=== PATIENT | female | born 1965 | race Caucasian/White ===

== ENCOUNTER 2021-04-29 10:35 | Emergency (ER) | payer OTHER ==
[~2021-04-29] VITALS: Ht 162.6 cm; Wt 83.9 kg
[~2021-04-29 10:35] MED LIST: CEPH250T; DOCU100C24; NORPTMEDS CO; OXYB5TAB24; PRO125RS
[2021-04-29 10:45] VITALS: BP 121/59
[2021-04-29] MEDS ORDERED: KETOROLAC TROMETH 60MG/2ML VIAL IM ONE (12:15)
== END 2021-04-29 14:19 | disposition home or self-care (01) ==
LOC: ER 10:35
DX: S63.92XA Sprain of unspecified part of left wrist and hand, initial encounter (principal); M25.562 Pain in left knee; M54.5 Low back pain; E11.9 Type 2 diabetes mellitus without complications; Z79.899 Other long term (current) drug therapy; W01.0XXA Fall on same level from slipping, tripping and stumbling without subsequent striking against object, initial encounter; Y93.89 Activity, other specified; Y92.89 Other specified places as the place of occurrence of the external cause; Y99.0 Civilian activity done for income or pay
CPT/HCPCS: 72100; 73130; 73562; 96372; 99284; J1885

== ENCOUNTER 2021-09-14 11:34 | Inpatient (IN) | payer OTHER ==
[~2021-09-14] VITALS: Ht 162.6 cm; Wt 84.8 kg
[2021-09-14] MEDS ORDERED: methylPREDNISolone SOD SUCC 125 MG/2 ML VL IV ONE (11:45)
[2021-09-14 13:11] LABS: Hematocrit 39.2 % (36.0-46.0); Hemoglobin 13.2 g/dL (12.2-16.2); Mean Corpuscular Hemoglobin 28.1 pg (28.0-32.0); Mean Corpuscular Hgb Conc. 33.8 g/dL (32.0-36.0); Mean Corpuscular Volume 83.1 fL (80.0-100.0); Red Blood Cells 4.72 10^6/uL (4.0-5.20); Red Cell Distribution Width 14.1 % (11.8-14.3)
[2021-09-14 13:18] LABS: Basophils % (manual) 0 (0.0-2.0); Blast Cells 0; Eosinophils % (manual) 0 (0-7); Monocytes % (manual) 0 (0-12); Promyelocytes % 0; Reactive Lymphocytes 0
[2021-09-14 13:51] LABS: Band Neutrophils % (manual) 4; Lymphocytes % (manual) 11 (10.0-50.0); Metamyelocytes % 1; Myelocytes % 1
[2021-09-14] MEDS ORDERED: hydrALAZINE HCL 20 MG/ML VL IV PRN (14:00)
[2021-09-14] MEDS ORDERED: MORPHINE SULFATE INJECTION 2 MG/ML SYRG IV PRN (14:00)
[2021-09-14] MEDS ORDERED: HYDROcodone-ACET 10/325MG TAB PO PRN (14:00)
[2021-09-14] MEDS ORDERED: NITROGLYCERIN 0.4 MG SL TAB SL PRN (14:00)
[2021-09-14 14:31] LABS: Albumin 1.9 g/dL (3.4-5.0); Anion Gap 11 (5-15); Blood Urea Nitrogen 14 mg/dL (7-18); Calcium 8.1 mg/dL (8.5-10.1); Carbon Dioxide 25 mmol/L (21-32); Chloride 101 mmol/L (98-107); Glucose 210 mg/dL (74-106); Magnesium 1.7 mg/dL (1.6-2.6); Potassium 4.5 mmol/L (3.5-5.1); Sodium 137 mmol/L (136-145)
[2021-09-14 14:41] LABS: Alanine Aminotransferase 43 U/L (13-56); Alkaline Phosphatase 148 U/L (45-117); Aspartate Aminotransferase 83 U/L (15-37); BUN/Creatinine Ratio 29.2; Bilirubin, Total 0.6 mg/dL (0.2-1.0); GFR African American 171 mL/min; GFR Non-African American 142 mL/min; Total Protein 6.3 g/dL (6.4-8.2)
[2021-09-14] MEDS: ZINC SULFATE 220mg CAP or TAB PO SCH (14:47)
[2021-09-14] MEDS: ENOXAPARIN SOD 40 MG/0.4 ML SYRINGE SC SCH (14:48)
[2021-09-14] MEDS: ASCORBIC ACID 500 MG TAB PO SCH ×2 (14:48→22:12)
[2021-09-14 14:52] LABS: CRP High Sensitivity > 19.0 mg/dL (< 0.3)
[2021-09-14 15:29] VITALS: BP 135/57
[2021-09-14] MEDS: DOXYCYCLINE 100MG/250ML 250 ML IV SCH (17:05)
[2021-09-14] MEDS ORDERED: cefTRIAXone 1GM/50ML D5W 50 ML IV ONE (18:00)
[2021-09-14 20:44] VITALS: BP 146/79
[2021-09-14] MEDS: ALBUTEROL SULF HFA 90MCG INH 200DOSE IN SCH (21:51)
[2021-09-14 22:00] VITALS: BP 146/79
[2021-09-14] MEDS ORDERED: ALBUTEROL SULF HFA 90MCG INH 200DOSE IN SCH (22:00)
[2021-09-14] MEDS: HYDROcodone-ACET 10/325MG TAB PO PRN (22:11)
[2021-09-14] MEDS ORDERED: METF-370 PO (23:58)
[2021-09-15] VITALS (13 sets, daily range): BP systolic 113–145; BP diastolic 67–90
[2021-09-15] MEDS: DOXYCYCLINE 100MG/250ML 250 ML IV SCH ×2 (03:30→15:54)
[2021-09-15 06:47] LABS: Hematocrit 40.9 % (36.0-46.0); Mean Corpuscular Hgb Conc. 34.2 g/dL (32.0-36.0); Mean Corpuscular Volume 84.8 fL (80.0-100.0); Red Blood Cells 4.82 10^6/uL (4.0-5.20); White Blood Cell 10.8 10^3/uL (4.4-10.8)
[2021-09-15 06:49] LABS: Basophils % (manual) 0 (0.0-2.0); Blast Cells 0; Eosinophils % (manual) 0 (0-7); Metamyelocytes % 0; Myelocytes % 0; Promyelocytes % 0; Reactive Lymphocytes 0
[2021-09-15 06:53] LABS: Calcium 8.2 mg/dL (8.5-10.1); Potassium 4.1 mmol/L (3.5-5.1)
[2021-09-15 06:59] LABS: Albumin 1.7 g/dL (3.4-5.0); Bilirubin, Total 0.4 mg/dL (0.2-1.0)
[2021-09-15] MEDS ORDERED: VANCOMYCIN PER PHARMACY 0 MG IV SCH (07:15)
[2021-09-15 08:18] LABS: Band Neutrophils % (manual) 6; Lymphocytes % (manual) 9 (10.0-50.0); Monocytes % (manual) 4 (0-12)
[2021-09-15] MEDS: cefTRIAXone 1GM/50ML D5W 50 ML IV SCH (09:14)
[2021-09-15] MEDS: Glucerna Carbsteady SHAKE Vanilla 8oz PO SCH ×4 (09:41→17:46)
[2021-09-15] MEDS: ASCORBIC ACID 500 MG TAB PO SCH ×2 (09:42→21:36)
[2021-09-15] MEDS: DexAMETHasone SOD PHOS 10MG/1ML VIAL INJ IV SCH (09:42)
[2021-09-15] MEDS: ZINC SULFATE 220mg CAP or TAB PO SCH (09:42)
[2021-09-15] MEDS: ENOXAPARIN SOD 40 MG/0.4 ML SYRINGE SC SCH (10:00)
[2021-09-15] MEDS: ALBUTEROL SULF HFA 90MCG INH 200DOSE IN SCH ×2 (10:00→19:27)
[2021-09-15] MEDS: VANCOMYCIN 1GM/250ML 250 ML IV SCH ×2 (10:25→21:35)
[2021-09-15 10:29] LABS: INR 1.02 (0.9-1.15)
[2021-09-15 11:45] LABS: Urine Bacteria NONE SEEN /hpf (None Seen); Urine Blood Negative /uL (Negative); Urine Specific Gravity 1.036 (1.001-1.035); Urine WBC 1 /hpf (0 - 5)
[2021-09-15] MEDS ORDERED: LIDOCAINE 2%HCL (LOCAL ANESTH.) INJ 20ML MDV ONE (12:29)
[2021-09-15] MEDS: HYDROcodone-ACET 5/325MG TAB PO PRN (15:07)
[2021-09-15] MEDS: HYDROcodone-ACET 10/325MG TAB PO PRN (21:57)
[2021-09-16] MEDS: HYDROcodone-ACET 10/325MG TAB PO PRN ×3 (03:42→22:34)
[2021-09-16] MEDS: DOXYCYCLINE 100MG/250ML 250 ML IV SCH ×2 (03:42→18:14)
[2021-09-16 05:00] VITALS: BP 129/88
[2021-09-16] MEDS: ALBUTEROL SULF HFA 90MCG INH 200DOSE IN SCH ×2 (05:42→19:18)
[2021-09-16 06:17] LABS: Hematocrit 38.3 % (36.0-46.0); Hemoglobin 12.7 g/dL (12.2-16.2); Mean Corpuscular Hgb Conc. 33.2 g/dL (32.0-36.0); Mean Corpuscular Volume 84.3 fL (80.0-100.0); Red Blood Cells 4.55 10^6/uL (4.0-5.20); Red Cell Distribution Width 13.5 % (11.8-14.3); White Blood Cell 14.3 10^3/uL (4.4-10.8)
[2021-09-16] MEDS: VANCOMYCIN 1GM/250ML 250 ML IV SCH ×2 (06:23→16:54)
[2021-09-16 06:39] LABS: Basophils % (manual) 0 (0.0-2.0); Blast Cells 0; Eosinophils % (manual) 0 (0-7); Myelocytes % 0; Promyelocytes % 0; Reactive Lymphocytes 0
[2021-09-16 06:43] LABS: Albumin 1.7 g/dL (3.4-5.0); Calcium 8.4 mg/dL (8.5-10.1); Potassium 4.5 mmol/L (3.5-5.1)
[2021-09-16 06:48] LABS: Bilirubin, Total 0.4 mg/dL (0.2-1.0); Total Protein 5.6 g/dL (6.4-8.2)
[2021-09-16 08:00] VITALS: BP 98/57
[2021-09-16] MEDS: cefTRIAXone 1GM/50ML D5W 50 ML IV SCH (09:07)
[2021-09-16] MEDS: Glucerna Carbsteady SHAKE Vanilla 8oz PO SCH ×3 (09:08→18:15)
[2021-09-16] MEDS: DexAMETHasone SOD PHOS 10MG/1ML VIAL INJ IV SCH (09:50)
[2021-09-16] MEDS: ZINC SULFATE 220mg CAP or TAB PO SCH (09:58)
[2021-09-16] MEDS: ASCORBIC ACID 500 MG TAB PO SCH ×2 (09:58→22:34)
[2021-09-16] MEDS: ENOXAPARIN SOD 40 MG/0.4 ML SYRINGE SC SCH (09:59)
[2021-09-16 12:00] VITALS: BP 124/62
[2021-09-16 12:55] LABS: Band Neutrophils % (manual) 8; Lymphocytes % (manual) 10 (10.0-50.0); Metamyelocytes % 1; Monocytes % (manual) 5 (0-12)
[2021-09-16 16:00] VITALS: BP 137/80
[2021-09-16] MEDS: HYDROcodone-ACET 5/325MG TAB PO PRN (18:29)
[2021-09-16 22:00] VITALS: BP 136/81
[2021-09-17] MEDS: VANCOMYCIN 1GM/250ML 250 ML IV SCH ×3 (01:07→17:43)
[2021-09-17] MEDS: DOXYCYCLINE 100MG/250ML 250 ML IV SCH ×2 (04:31→15:50)
[2021-09-17] MEDS: HYDROcodone-ACET 10/325MG TAB PO PRN ×5 (04:32→21:50)
[2021-09-17 05:00] VITALS: BP 146/100
[2021-09-17 06:58] LABS: BUN/Creatinine Ratio 38.6; Calcium 8.8 mg/dL (8.5-10.1); Potassium 4.6 mmol/L (3.5-5.1)
[2021-09-17 07:01] LABS: Bilirubin, Total 0.4 mg/dL (0.2-1.0); Total Protein 6.1 g/dL (6.4-8.2)
[2021-09-17 07:07] LABS: Hematocrit 40.8 % (36.0-46.0); Hemoglobin 13.9 g/dL (12.2-16.2); Mean Corpuscular Hemoglobin 28.7 pg (28.0-32.0); Mean Corpuscular Hgb Conc. 34.1 g/dL (32.0-36.0); Red Blood Cells 4.85 10^6/uL (4.0-5.20); Red Cell Distribution Width 13.5 % (11.8-14.3); White Blood Cell 9.1 10^3/uL (4.4-10.8)
[2021-09-17 07:29] LABS: Basophils % (manual) 0 (0.0-2.0); Blast Cells 0; Eosinophils % (manual) 0 (0-7); Metamyelocytes % 0; Myelocytes % 0; Promyelocytes % 0; Reactive Lymphocytes 0
[2021-09-17] MEDS: ALBUTEROL SULF HFA 90MCG INH 200DOSE IN SCH ×2 (07:35→20:35)
[2021-09-17 08:00] VITALS: BP_SYST 123; BP_SYST 125; BP_DIAS 61
[2021-09-17] MEDS: cefTRIAXone 1GM/50ML D5W 50 ML IV SCH (09:06)
[2021-09-17] MEDS: Glucerna Carbsteady SHAKE Vanilla 8oz PO SCH ×3 (09:08→17:43)
[2021-09-17] MEDS: ENOXAPARIN SOD 40 MG/0.4 ML SYRINGE SC SCH (09:08)
[2021-09-17] MEDS: ZINC SULFATE 220mg CAP or TAB PO SCH (09:09)
[2021-09-17] MEDS: ASCORBIC ACID 500 MG TAB PO SCH ×2 (09:09→21:50)
[2021-09-17] MEDS: DexAMETHasone SOD PHOS 10MG/1ML VIAL INJ IV SCH (09:09)
[2021-09-17 09:49] LABS: Band Neutrophils % (manual) 2; Lymphocytes % (manual) 19 (10.0-50.0); Monocytes % (manual) 7 (0-12)
[2021-09-17] MEDS ORDERED: PROMETHAZINE W/CODEINE 5 ML ORAL SYRUP PO PRN (11:15)
[2021-09-17 12:00] VITALS: BP 125/61
[2021-09-17] MEDS ORDERED: DEXTROSE (50%) 50ML SYRG IV PRN (13:00)
[2021-09-17] MEDS: LORazepam 0.5 MG TAB PO PRN (13:08)
[2021-09-17] MEDS: ACCU-CHEK COMFORT CURVE STRIP VI SCH ×2 (17:42→21:50)
[2021-09-17] MEDS: InsuLIN REG 1unit/0.01ml Soln (100units/ml) SC SCH ×2 (17:45→21:46)
[2021-09-18] MEDS: HYDROcodone-ACET 10/325MG TAB PO PRN ×4 (02:39→21:35)
[2021-09-18] MEDS: VANCOMYCIN 1GM/250ML 250 ML IV SCH ×3 (03:01→21:23)
[2021-09-18] MEDS: LORazepam 0.5 MG TAB PO PRN ×2 (04:41→15:27)
[2021-09-18 05:00] VITALS: BP 117/66
[2021-09-18] MEDS: DOXYCYCLINE 100MG/250ML 250 ML IV SCH ×2 (05:34→15:35)
[2021-09-18] MEDS: InsuLIN REG 1unit/0.01ml Soln (100units/ml) SC SCH ×4 (06:22→21:30)
[2021-09-18] MEDS: ACCU-CHEK COMFORT CURVE STRIP VI SCH ×4 (06:23→21:23)
[2021-09-18 06:32] LABS: Basophils # (auto) 0 10 ^3/uL (0-0.2); Basophils % (auto) 0.4 % (0.0-2.0); Eosinophils # (auto) 0 10 ^3/uL (0-0.8); Eosinophils % (auto) 0.2 % (0.0-7.0); Hematocrit 39.1 % (36.0-46.0); Lymphocytes # (auto) 1.5 10 ^3/uL (0.4-5.4); Lymphocytes % (auto) 19.1 % (10.0-50.0); Mean Corpuscular Hemoglobin 28.2 pg (28.0-32.0); Mean Corpuscular Hgb Conc. 33.2 g/dL (32.0-36.0); Mean Corpuscular Volume 84.8 fL (80.0-100.0); Monocytes # (auto) 0.6 10 ^3/uL (0-1.3); Monocytes % (auto) 7.3 % (0.0-12.0); Neutrophils # (auto) 5.6 10 ^3/uL (1.6-8.6); Nucleated Red Blood Cells % 0.1 %; Red Blood Cells 4.61 10^6/uL (4.0-5.20); Red Cell Distribution Width 13.6 % (11.8-14.3); White Blood Cell 7.7 10^3/uL (4.4-10.8)
[2021-09-18 06:39] LABS: Albumin 1.9 g/dL (3.4-5.0); Calcium 8.4 mg/dL (8.5-10.1); Potassium 4.4 mmol/L (3.5-5.1)
[2021-09-18 06:44] LABS: BUN/Creatinine Ratio 30.1; Bilirubin, Total 0.3 mg/dL (0.2-1.0); Total Protein 6.1 g/dL (6.4-8.2)
[2021-09-18] MEDS: ALBUTEROL SULF HFA 90MCG INH 200DOSE IN SCH ×2 (08:16→21:40)
[2021-09-18 09:00] VITALS: BP 117/78
[2021-09-18] MEDS: ZINC SULFATE 220mg CAP or TAB PO SCH (10:10)
[2021-09-18] MEDS: ENOXAPARIN SOD 40 MG/0.4 ML SYRINGE SC SCH (10:10)
[2021-09-18] MEDS: ASCORBIC ACID 500 MG TAB PO SCH ×2 (10:10→21:23)
[2021-09-18] MEDS: cefTRIAXone 1GM/50ML D5W 50 ML IV SCH (10:11)
[2021-09-18] MEDS: DexAMETHasone SOD PHOS 10MG/1ML VIAL INJ IV SCH (10:11)
[2021-09-18] MEDS: Glucerna Carbsteady SHAKE Vanilla 8oz PO SCH ×3 (10:12→18:13)
[2021-09-18 12:10] VITALS: BP 117/78
[2021-09-18 13:00] VITALS: BP 91/45
[2021-09-18 16:56] VITALS: BP 111/62
[2021-09-18] MEDS: INSULIN LANTUS (GLARGINE) 1 /0.01ml (100units/ml) SC SCH (21:30)
[2021-09-18 22:00] VITALS: BP 103/61
[2021-09-19] MEDS: HYDROcodone-ACET 10/325MG TAB PO PRN ×2 (02:21→21:57)
[2021-09-19] MEDS: DOXYCYCLINE 100MG/250ML 250 ML IV SCH (03:51)
[2021-09-19 05:00] VITALS: BP 106/68
[2021-09-19] MEDS: ALBUTEROL SULF HFA 90MCG INH 200DOSE IN SCH ×2 (05:49→21:40)
[2021-09-19] MEDS: INSULIN LANTUS (GLARGINE) 1 /0.01ml (100units/ml) SC SCH ×2 (06:49→21:56)
[2021-09-19] MEDS: ACCU-CHEK COMFORT CURVE STRIP VI SCH ×4 (06:49→21:55)
[2021-09-19] MEDS: InsuLIN REG 1unit/0.01ml Soln (100units/ml) SC SCH ×4 (06:50→21:56)
[2021-09-19] MEDS: VANCOMYCIN 1GM/250ML 250 ML IV SCH ×2 (06:55→16:14)
[2021-09-19 06:58] LABS: Basophils # (auto) 0 10 ^3/uL (0-0.2); Basophils % (auto) 0.1 % (0.0-2.0); Eosinophils # (auto) 0 10 ^3/uL (0-0.8); Eosinophils % (auto) 0.5 % (0.0-7.0); Hematocrit 39.6 % (36.0-46.0); Hemoglobin 13.2 g/dL (12.2-16.2); Mean Corpuscular Hemoglobin 27.9 pg (28.0-32.0); Mean Corpuscular Hgb Conc. 33.4 g/dL (32.0-36.0); Mean Corpuscular Volume 83.6 fL (80.0-100.0); Monocytes # (auto) 0.6 10 ^3/uL (0-1.3); Monocytes % (auto) 7.1 % (0.0-12.0); Neutrophils # (auto) 5.5 10 ^3/uL (1.6-8.6); Neutrophils % (auto) 67.3 % (37.0-80.0); Nucleated Red Blood Cells % 0.1 %; Red Blood Cells 4.74 10^6/uL (4.0-5.20); Red Cell Distribution Width 13.6 % (11.8-14.3); White Blood Cell 8.1 10^3/uL (4.4-10.8)
[2021-09-19 07:12] LABS: Albumin 1.9 g/dL (3.4-5.0); Calcium 8.4 mg/dL (8.5-10.1); Potassium 4.5 mmol/L (3.5-5.1)
[2021-09-19 07:16] LABS: BUN/Creatinine Ratio 44.3; Bilirubin, Total 0.4 mg/dL (0.2-1.0); Total Protein 5.7 g/dL (6.4-8.2)
[2021-09-19] MEDS: Glucerna Carbsteady SHAKE Vanilla 8oz PO SCH ×3 (08:00→18:00)
[2021-09-19 09:00] VITALS: BP 100/46
[2021-09-19] MEDS ORDERED: ALPRAZolam 0.25 MG TAB PO PRN (09:15)
[2021-09-19] MEDS: DexAMETHasone SOD PHOS 10MG/1ML VIAL INJ IV SCH (09:43)
[2021-09-19] MEDS: ZINC SULFATE 220mg CAP or TAB PO SCH (09:43)
[2021-09-19] MEDS: cefTRIAXone 1GM/50ML D5W 50 ML IV SCH (09:43)
[2021-09-19] MEDS: ASCORBIC ACID 500 MG TAB PO SCH ×2 (09:44→21:55)
[2021-09-19] MEDS: ENOXAPARIN SOD 40 MG/0.4 ML SYRINGE SC SCH (09:44)
[2021-09-19 13:00] VITALS: BP 90/54
[2021-09-19 16:48] VITALS: BP 103/63
[2021-09-19 17:02] LABS: INR 1.03 (0.9-1.15)
[2021-09-19] MEDS: LORazepam 0.5 MG TAB PO PRN (20:28)
[2021-09-19 22:00] VITALS: BP_SYST 100; BP_DIAS 59; BP_DIAS 80
[2021-09-20] MEDS: VANCOMYCIN 1GM/250ML 250 ML IV SCH ×2 (00:57→10:27)
[2021-09-20 05:00] VITALS: BP 89/53
[2021-09-20 05:54] LABS: Basophils # (auto) 0 10 ^3/uL (0-0.2); Basophils % (auto) 0.5 % (0.0-2.0); Eosinophils # (auto) 0.1 10 ^3/uL (0-0.8); Eosinophils % (auto) 0.9 % (0.0-7.0); Hematocrit 39.2 % (36.0-46.0); Hemoglobin 13.1 g/dL (12.2-16.2); Lymphocytes # (auto) 2.5 10 ^3/uL (0.4-5.4); Lymphocytes % (auto) 29.8 % (10.0-50.0); Mean Corpuscular Hemoglobin 28.3 pg (28.0-32.0); Mean Corpuscular Hgb Conc. 33.5 g/dL (32.0-36.0); Mean Corpuscular Volume 84.4 fL (80.0-100.0); Monocytes # (auto) 0.5 10 ^3/uL (0-1.3); Monocytes % (auto) 6.4 % (0.0-12.0); Neutrophils # (auto) 5.3 10 ^3/uL (1.6-8.6); Neutrophils % (auto) 62.4 % (37.0-80.0); Nucleated Red Blood Cells % 0.1 %; Red Blood Cells 4.64 10^6/uL (4.0-5.20); Red Cell Distribution Width 13.5 % (11.8-14.3); White Blood Cell 8.5 10^3/uL (4.4-10.8)
[2021-09-20] MEDS: ALBUTEROL SULF HFA 90MCG INH 200DOSE IN SCH (06:07)
[2021-09-20 06:20] LABS: Calcium 8.5 mg/dL (8.5-10.1); Potassium 4.6 mmol/L (3.5-5.1)
[2021-09-20 06:25] LABS: BUN/Creatinine Ratio 49.2; Bilirubin, Total 0.4 mg/dL (0.2-1.0); Total Protein 5.8 g/dL (6.4-8.2)
[2021-09-20] MEDS: ACCU-CHEK COMFORT CURVE STRIP VI SCH ×3 (06:33→17:08)
[2021-09-20] MEDS: INSULIN LANTUS (GLARGINE) 1 /0.01ml (100units/ml) SC SCH (06:33)
[2021-09-20] MEDS: InsuLIN REG 1unit/0.01ml Soln (100units/ml) SC SCH ×4 (06:41→17:14)
[2021-09-20 06:43] VITALS: BP 101/57
[2021-09-20] MEDS: HYDROcodone-ACET 10/325MG TAB PO PRN ×2 (06:47→14:05)
[2021-09-20 09:00] VITALS: BP 89/48
[2021-09-20] MEDS: ZINC SULFATE 220mg CAP or TAB PO SCH (10:06)
[2021-09-20] MEDS: ASCORBIC ACID 500 MG TAB PO SCH (10:06)
[2021-09-20] MEDS: ENOXAPARIN SOD 40 MG/0.4 ML SYRINGE SC SCH (10:07)
[2021-09-20] MEDS: Glucerna Carbsteady SHAKE Vanilla 8oz PO SCH ×2 (10:27→12:20)
[2021-09-20] MEDS: DexAMETHasone SOD PHOS 10MG/1ML VIAL INJ IV SCH (10:28)
[2021-09-20] MEDS ORDERED: LIDOCAINE 1% (LOCAL ANESTH.) PF 5ml SDV ID ONE (12:00)
[2021-09-20 14:11] VITALS: BP 98/57
[2021-09-20 16:35] VITALS: BP 106/57
[2021-09-20] MEDS ORDERED: SODIUM CHLOR 0.9% PF (SALINE LOCK) 10ML VIAL/SYR IV SCH (22:00)
== END 2021-09-20 17:35 | DRG 137 ==
LOC: ER 11:34 → EDBD 11:34 → TELE 11:35 → TELE-EAST 20:16
PROVIDERS: ADMIT Internal Medicine; ATTEND Internal Medicine
PROC: 0W9B3ZZ Drainage of Left Pleural Cavity, Percutaneous Approach (ICD-10-PCS; principal; 2021-09-15)
PROC: 02HV33Z Insertion of Infusion Device into Superior Vena Cava, Percutaneous Approach (ICD-10-PCS; 2021-09-20)
DX: U07.1 COVID-19 (principal); J96.01 Acute respiratory failure with hypoxia; J12.82 Pneumonia due to coronavirus disease 2019; J86.9 Pyothorax without fistula; R78.81 Bacteremia; E11.9 Type 2 diabetes mellitus without complications; B95.62 Methicillin resistant Staphylococcus aureus infection as the cause of diseases classified elsewhere; J90 Pleural effusion, not elsewhere classified; R79.89 Other specified abnormal findings of blood chemistry; E66.9 Obesity, unspecified; Z68.30 Body mass index [BMI] 30.0-30.9, adult; Z79.899 Other long term (current) drug therapy; Z80.9 Family history of malignant neoplasm, unspecified; Z83.3 Family history of diabetes mellitus; Z87.442 Personal history of urinary calculi; Z88.1 Allergy status to other antibiotic agents; Z94.9 Transplanted organ and tissue status, unspecified; Z88.8 Allergy status to other drugs, medicaments and biological substances
CPT/HCPCS: 10022; 36415; 36569; 36600; 71045; 71250; 76604; 77012; 80053; 80202; 81001; 82728; 82805; 82962; 83036; 83615; 83735; 83986; 85007; 85025; 85027; 85379; 85610; 85730; 86141; 87040; 87070; 87077; 87147; 87186; 87205; 87426; 89051; 93306; 94640; 96365; 96366; 96375; 99291; G0378; J0696; J1100; J1815; J3490

== ENCOUNTER 2023-06-14 19:10 | Emergency (ER) | payer MEDICAID, OTHER ==
[~2023-06-14] VITALS: Ht 162.6 cm; Wt 77.3 kg
[~2023-06-14 19:10] MED LIST changes: +METF-370 PO
[2023-06-14 20:18] LABS: Basophils # (auto) 0.1 10 ^3/uL (0-0.2); Basophils % (auto) 0.9 % (0.0-2.0); Eosinophils # (auto) 0 10 ^3/uL (0-0.8); Eosinophils % (auto) 0.1 % (0.0-7.0); Hematocrit 42.3 % (36.0-46.0); Hemoglobin 13.9 g/dL (12.2-16.2); Lymphocytes # (auto) 2.6 10 ^3/uL (0.4-5.4); Lymphocytes % (auto) 20.5 % (10.0-50.0); Mean Corpuscular Hemoglobin 28.6 pg (28.0-32.0); Mean Corpuscular Hgb Conc. 32.8 g/dL (32.0-36.0); Mean Corpuscular Volume 87.2 fL (80.0-100.0); Monocytes # (auto) 0.5 10 ^3/uL (0-1.3); Monocytes % (auto) 3.9 % (0.0-12.0); Neutrophils # (auto) 9.5 10 ^3/uL (1.6-8.6); Neutrophils % (auto) 74.6 % (37.0-80.0); Red Blood Cells 4.85 10^6/uL (4.0-5.20); Red Cell Distribution Width 14.4 % (11.8-14.3); White Blood Cell 12.7 10^3/uL (4.4-10.8)
[2023-06-14 20:25] LABS: Urine Bacteria NONE SEEN /hpf (None Seen); Urine Blood 3+ /uL (Negative); Urine Clarity CLOUDY (Clear); Urine Color Yellow (Yellow); Urine Mucus FEW (None Seen); Urine Protein, UAD 2+ (Negative); Urine Urobilinogen Normal (Negative); Urine WBC 3262 /hpf (0 - 5); Urine WBC Clumps PRESENT /hpf (None Seen)
[2023-06-14 20:28] LABS: Urine Specific Gravity 1.025 (1.001-1.035)
[2023-06-14 20:36] LABS: Alanine Aminotransferase 15 U/L (7-40); Albumin 4.1 g/dL (3.2-4.8); Alkaline Phosphatase 108 U/L (46-116); Calcium 9.6 mg/dL (8.5-10.1); Carbon Dioxide 26.5 mmol/L (20-30); Chloride 100 mmol/L (98-107)
[2023-06-14 20:37] LABS: Anion Gap 9.5 (5-15); Aspartate Aminotransferase < 8 U/L (13-40); Bilirubin, Total 0.7 mg/dL (0.2-1.0); Blood Urea Nitrogen 19 mg/dL (9-23); Potassium 4.5 mmol/L (3.5-5.1); Sodium 136 mmol/L (136-145); Total Protein 6.9 g/dL (5.7-8.2)
[2023-06-14 20:39] LABS: Glucose 433 mg/dL (74-106)
[2023-06-14] MEDS ORDERED: ONDANSETRON HCL 4 MG/2 ML VIAL IV ONE (20:45)
[2023-06-14] MEDS ORDERED: SODIUM CHLORIDE 0.9% 1,000 ML IV ONE (20:45)
[2023-06-14] MEDS ORDERED: HYDROcodone-ACET 5/325MG TAB PO ONE (20:45)
[2023-06-14] MEDS ORDERED: CEPH500C PO (21:41)
[2023-06-14] MEDS ORDERED: HYDR1TAB97 PO (21:41)
[2023-06-14] MEDS ORDERED: TAMS-35 PO (21:48)
[2023-06-14 21:52] LABS: Lactic Acid w/Reflex 2.2 mmol/L (0.4-2.0)
[2023-06-14] MEDS ORDERED: TAMSULOSIN HYDROCHLORIDE 0.4 MG CAP PO ONE (22:30)
[2023-06-14] MEDS ORDERED: ONDA-155 PO (23:32)
[2023-06-15 02:10] VITALS: BP 98/50; PULSE 89; RESP 18; O2SAT 98
== END 2023-06-15 02:13 | disposition home or self-care (01) ==
LOC: ER 19:18
DX: N20.0 Calculus of kidney (principal); R10.9 Unspecified abdominal pain; N13.30 Unspecified hydronephrosis; E11.65 Type 2 diabetes mellitus with hyperglycemia; Q64.8 Other specified congenital malformations of urinary system; F32.9 Major depressive disorder, single episode, unspecified; I10 Essential (primary) hypertension; Z98.890 Other specified postprocedural states; Z90.49 Acquired absence of other specified parts of digestive tract; Z79.899 Other long term (current) drug therapy; Z88.2 Allergy status to sulfonamides; Z79.84 Long term (current) use of oral hypoglycemic drugs
CPT/HCPCS: 36415; 74176; 80053; 81001; 83605; 84484; 85025; 96361; 96374; 99285; J2405; J7030

== ENCOUNTER 2023-08-05 22:00 | Emergency (ER) | payer MEDICAID ==
[~2023-08-05] VITALS: Ht 162.6 cm; Wt 77.0 kg
[~2023-08-05 22:00] MED LIST changes: +CEPH500C PO; +HYDR1TAB97 PO; +ONDA-155 PO; +TAMS-35 PO
[2023-08-05 23:12] LABS: Basophils # (auto) 0.1 10 ^3/uL (0-0.2); Basophils % (auto) 0.8 % (0.0-2.0); Eosinophils # (auto) 0.1 10 ^3/uL (0-0.8); Eosinophils % (auto) 1.3 % (0.0-7.0); Hematocrit 42.8 % (36.0-46.0); Hemoglobin 14.2 g/dL (12.2-16.2); Lymphocytes # (auto) 3.7 10 ^3/uL (0.4-5.4); Lymphocytes % (auto) 34.7 % (10.0-50.0); Mean Corpuscular Hgb Conc. 33.3 g/dL (32.0-36.0); Mean Corpuscular Volume 87.3 fL (80.0-100.0); Monocytes # (auto) 0.6 10 ^3/uL (0-1.3); Monocytes % (auto) 5.4 % (0.0-12.0); Neutrophils # (auto) 6.1 10 ^3/uL (1.6-8.6); Neutrophils % (auto) 57.8 % (37.0-80.0); Nucleated Red Blood Cells % 0.1 %; Red Cell Distribution Width 13.7 % (11.8-14.3); White Blood Cell 10.6 10^3/uL (4.4-10.8)
[2023-08-05 23:17] LABS: Urine Bacteria NONE SEEN /hpf (None Seen); Urine Blood 3+ /uL (Negative); Urine Clarity HAZY (Clear); Urine Protein, UAD TRACE (Negative); Urine Specific Gravity 1.029 (1.001-1.035); Urine Urobilinogen Normal (Negative); Urine WBC 303 /hpf (0 - 5); Urine pH 5.5 (5.0-8.0)
[2023-08-05 23:18] LABS: Urine Color Straw (Yellow)
[2023-08-05] MEDS ORDERED: cefTRIAXone 1GM/50ML D5W 50 ML IV ONE (23:30)
[2023-08-05] MEDS ORDERED: SODIUM CHLORIDE 0.9% 1,000 ML IV ONE (23:30)
[2023-08-05 23:33] LABS: Alanine Aminotransferase 20 U/L (7-40); Albumin 4.3 g/dL (3.2-4.8); Alkaline Phosphatase 96 U/L (46-116); Anion Gap 5 (5-15); Aspartate Aminotransferase 10 U/L (13-40); BUN/Creatinine Ratio 9.5 (10.0-20.0); Blood Urea Nitrogen 10 mg/dL (9-23); Calcium 9.9 mg/dL (8.7-10.4); Carbon Dioxide 30 mmol/L (20-30); Chloride 98 mmol/L (98-107); Glucose 349 mg/dL (74-106); Lipase 52 U/L (12-53); Potassium 4.2 mmol/L (3.5-5.1); Sodium 133 mmol/L (136-145)
[2023-08-05 23:34] LABS: Bilirubin, Total 0.3 mg/dL (0.2-1.0); Total Protein 7.3 g/dL (5.7-8.2)
[2023-08-06] MEDS ORDERED: MORPHINE SULFATE 4 MG/ML SYR/VIAL IV ONE
[2023-08-06 02:35] VITALS: TEMP 97.6
[2023-08-06] MEDS ORDERED: levoFLOXacin 750MG 150 ML IV ONE (03:00)
[2023-08-06] MEDS ORDERED: diphenhdrAMINE HCL 50 MG/1 ML VL IV ONE (03:15)
[2023-08-06] MEDS ORDERED: IOHEXOL 300 MG/ML 100ML BOTTLE IJ ONE (06:05)
[2023-08-06] MEDS ORDERED: LEVO500T91 PO (07:14)
[2023-08-06] MEDS ORDERED: CEPH250C PO (09:59)
[2023-08-06] MEDS ORDERED: ONDANSETRON HCL 4 MG/2 ML VIAL IV ONE ×2 (10:00)
[2023-08-06] MEDS ORDERED: HYDROmorphone HCL 2 MG/ML VL/or syr IV ONE (10:00)
[2023-08-06] MEDS ORDERED: CEPHALEXIN 250 MG CAP PO ONE (10:00)
[2023-08-06 10:20] VITALS: PULSE 89; RESP 23; O2SAT 99
[2023-08-06 10:46] VITALS: BP 115/65; PULSE 89; RESP 23; O2SAT 99
== END 2023-08-06 10:59 | disposition home or self-care (01) ==
LOC: ER 22:01
DX: N30.00 Acute cystitis without hematuria (principal); F32.9 Major depressive disorder, single episode, unspecified; E11.9 Type 2 diabetes mellitus without complications; Z87.442 Personal history of urinary calculi; Z90.49 Acquired absence of other specified parts of digestive tract; Z88.8 Allergy status to other drugs, medicaments and biological substances; Z79.1 Long term (current) use of non-steroidal anti-inflammatories (NSAID); Z79.84 Long term (current) use of oral hypoglycemic drugs; Z79.899 Other long term (current) drug therapy
CPT/HCPCS: 36415; 74177; 80053; 81001; 83605; 83690; 85025; 87040; 96365; 96366; 96367; 96375; 96376; 99285; J0696; J1200; J1956; J2270; J2405; Q9967

== ENCOUNTER 2025-05-20 15:33 | Emergency (ER) | payer MEDICAID ==
[~2025-05-20] VITALS: Ht 162.6 cm; Wt 70.0 kg
[~2025-05-20 15:33] MED LIST changes: +BACL10TA PO; +CEPH250C PO; +HYDR-4902 PO; +LEVO500T91 PO; +PHEN-1045 PO
[2025-05-20] MEDS: NITROGLYCERIN 0.4 MG SL TAB SL ONE (15:45)
[2025-05-20 16:05] LABS: Hematocrit 43.7 % (36.0-46.0); Hemoglobin 14.7 g/dL (12.2-16.2); Mean Corpuscular Hemoglobin 29.3 pg (28.0-32.0); Mean Corpuscular Volume 86.9 fL (80.0-100.0); Nucleated Red Blood Cells % 0.1 %
[2025-05-20 16:22] LABS: Alanine Aminotransferase 13 U/L (7-40); Albumin 3.9 g/dL (3.2-4.8); Alkaline Phosphatase 87 U/L (46-116); Anion Gap 7 (5-15); BUN/Creatinine Ratio 26.2 (10.0-20.0); Blood Urea Nitrogen 22 mg/dL (9-23); Calcium 9.1 mg/dL (8.7-10.4); Carbon Dioxide 30 mmol/L (20-31); Chloride 105 mmol/L (98-107); Lipase 40 U/L (12-53); Potassium 4.0 mmol/L (3.5-5.1); Sodium 142 mmol/L (136-145); Total Protein 6.3 g/dL (5.7-8.2)
[2025-05-20 16:23] LABS: Bilirubin, Total 0.3 mg/dL (0.2-1.0)
[2025-05-20 16:30] LABS: Glucose 155 mg/dL (74-106)
[2025-05-20 18:00] LABS: Urine Protein, UAD Negative (Negative)
[2025-05-20 18:17] LABS: Opiate Scree,Urine Neg (NEGATIVE)
[2025-05-20 18:21] LABS: Amphetamine Screen, Urine Pos (NEGATIVE); Barbiturate Scree,Urine Neg (NEGATIVE); Benzodiazephine Screen, Urine Neg (NEGATIVE); Cannabinoid Screen, Urine Neg (NEGATIVE); Cocaine Screen, Urine Neg (NEGATIVE); Phencyclidine Screen, Urine Neg (NEGATIVE)
--- NOTE | 2025-05-20 18:58 | ED.PDOC ---
HPI Comments This patient is a 60-year-old female who arrives the ED today for evaluation of chest pain concerns for the past week. Patient states the chest pain has been off and on and at times radiates to her upper right-sided back. Patient has a long history of methamphetamine use. Patient denies any fever nausea or vomiting. Vital signs were stable on arrival. Patient denies any history of cardiac or pulmonary concerns. Chief Complaint: Chest Pain Time Seen by MD: 15:34 Primary Care Provider: SHANAE Navarro Notes: Nurses Notes Allergies: Coded Allergies: Sulfamethoxazole w/Trimethoprim (Verified Allergy, Unknown, 09/14/21) Home Meds Active Scripts Phenazopyridine HCl (Phenazopyridine Hydrochol) 200 Mg Tab, 1 TAB PO TID for 3 Days, #9 TAB Prov:STAHLKIMBERALDA Q [employer]ING [employer] WORKER 01/14/24 Cephalexin Monohydrate (Cephalexin) 500 Mg Cap, 1 CAP PO QID for 10 Days, #40 CAP Prov:STAHLNORALDA Q [employer] WORKER 01/14/24 Baclofen (Baclofen) 10 Mg Tab, 1 TAB PO Q8HPRN PRN, #15 TAB as needed for muscle spasm Prov:STAHLNORALDA Q [employer] WORKER 01/14/24 Hydrocodone-Acetaminophen (Hydrocodone Bitartrate/AC 5-325 mg) 1 Tab Tab, 1 TAB PO Q6HPRN PRN, #10 TAB as needed for pain Prov:STAHLNORALDA Q [employer] WORKER 01/14/24 Cephalexin (KEFLEX CAPSULE) 250 Mg Cp, 1 CAP PO QID, #28 CAP Prov:ELIZABETH WOODARD MD 08/06/23 Levofloxacin Hemihydrate (LEVOFLOXACIN) 500 Mg Tab, 1 TAB PO DAILY for 7 Days, #7 TAB 0 Refills Prov:GUY SIBLEY MD 08/06/23 Ondansetron HCl (Ondansetron) 4 Mg Tab, 4 MG PO Q8HPRN PRN for 3 Days, #10 TAB Prov:HAYDEE JAIME DO 06/14/23 Tamsulosin Hcl (Flomax) 0.4 Mg Cap, 1 CAP PO DAILY for 20 Days, #30 CAP 11 Refills Prov:HAYDEE JAIME DO 06/14/23 Hydrocodone-Acetaminophen (Hydrocodone/Acetaminophen 5-325 mg) 1 Tab Tab, 1 TAB PO [id number] PRN for 5 Days, #10 TAB Prov:HAYDEE JAIME DO 06/14/23 Cephalexin Monohydrate (Cephalexin) 500 Mg Cap, 500 MG PO Q8HR for 7 Days, #21 CAP Prov:HAYDEE JAIME DO 06/14/23 Reported Medications Metformin Hydrochloride (Metformin Hcl) 500 Mg Tab, 1 TAB PO BID, #60 TAB 3 Refills 09/14/21 No Reported Medication (NO REPORTED MEDICATION) Ea, 0 CO UNK, EA PATIENT HAS NO REPORTED MEDICATIONS 10/04/13 Docusate Sodium (Doc-Q-Lace) 100 Mg Cap 05/25/11 Cephalexin (Cephalexin) 250 Mg Tab 05/25/11 Promethazine Hcl (Promethegan) 12.5 Mg Sup 05/25/11 Oxybutynin Chloride (Ditropan Xl) 5 Mg Tab 05/25/11 Information Source: Patient Mode of Arrival: Ambulatory Severity: Moderate Timing: Days Duration: Intermittent Prehospital treatment: None Location: Chest (R), Substernal Radiation: Back Quality: Sharp, Stabbing Onset: At Rest Cardiac Risk Factors: Other (Methamphetamine use) History of: Similar pain in past Past Medical History PAST MEDICAL HISTORY: Depression, DM, Kidney Stones Surgical History: Cholecystectomy ASSOCIATE CHEMIST History: No Pertinent ASSOCIATE CHEMIST History Family History Family History: Family hx of DM, Family hx of Cancer Social History Smoker: Non-Smoker Alcohol: Denies ETOH Use Drugs: Methamphetamine Lives In: Home Constitutional: denies: chills, diaphoresis, fatigue, fever, malaise, sweats, weakness, others EENTM: denies: blurred vision, double vision, ear bleeding, ear discharge, ear drainage, ear pain, ear ringing, eye pain, eye redness, hearing loss, mouth pain, mouth swelling, nasal discharge, nose bleeding, nose congestion, nose pain, photophobia, tearing, throat pain, throat swelling, voice changes, others Respiratory: denies: cough, hemoptysis, orthopnea, SOB at rest, shortness of breath, SOB with excertion, stridor, wheezing, others Cardiovascular: reports: chest pain; denies: dizzy spells, diaphoresis, Dyspnea on exertion, edema, irregular heart beat, left arm pain, lightheadedness, palpitations, PND, syncope, others Gastrointestinal: denies: abdomen distended, abdominal pain, blood streaked bowels, constipated, diarrhea, dysphagia, difficulty swallowing, hematemesis, melena, nausea, poor appetite, poor fluid intake, rectal bleeding, rectal pain, vomiting, others Genitourinary: denies: abnormal vagina bleeding, burning, dyspareunia, dysuria, flank pain, frequency, hematuria, incontinence, pain, , vagina discharge, urgency, others Neurological: denies: dizziness, fainting, headache, left sided numbness, left sided weakness, numbness, paresthesia, pre-existing deficit, right sided numbness, right sided weakness, seizure, speech problems, tingling, tremors, weakness, others Musculoskeletal: reports: back pain; denies: gout, joint pain, joint swelling, muscle pain, muscle stiffness, neck pain, others Integumetry: denies: bruises, change in color, change in hair/nails, dryness, laceration, lesions, lumps, rash, wounds, others Allergic/Immunocompromised: denies: Difficulty Healing, Frequent Infections, Hives, Itching, others Hematologic/Lymphatic: denies: anemia, blood clots, easy bleeding, easy bruising, swollen glands, others Endocrine: denies: excessive hunger, excessive sweating, excessive thirst, excessive urination, flushing, intolerance to cold, intolerance to heat, unexplained weight gain, unexplained weight loss, others Psychiatric: denies: anxiety, bipolar disorder, depression, hopeless, panic disorder, schizophrenia, sleepless, suicidal, others Physical Exam General Appearance: Moderate Distress (Ebac-di-drrpcwur distress due to chest pain concerns.), Normal HEENT: Normal ENT Inspection, Pharynx Normal, TMs Normal Neck: Full Range of Motion, Non-Tender, Normal, Normal Inspection Respiratory: Chest Non-Tender, Lungs Clear, No Accessory Muscle Use, No Respiratory Distress, Normal Breath Sounds Cardiovascular: No Edema, No JVD, No Murmur, No Gallop, Normal Peripheral Pulses, Regular Rate/Rhythm Breast Exam: Deferred Gastrointestinal: No Organomegaly, Non Tender, No Pulsatile Mass, Normal Bowel Sounds, Soft Genitalia: Deferred Pelvic: Deferred Rectal: Deferred Extremities: No calf tenderness, Normal capillary refill, Normal inspection, Normal range of motion, Non-tender, No pedal edema Neurologic: Alert, No Motor Deficits, Normal Affect, Normal Mood, No Sensory Deficits Cerebellar Function: NOT DONE Reflexes: NOT DONE Skin: Dry, Normal Color, Warm Lymphatic: No Adenopathy Was a procedure done? Was a procedure done?: No CP Differential Dx Differential Diagnosis: A-fib, AV Block 1st Degree, DC, Other (Methamphetamine use) X-Ray, Labs, Meds, VS Vital Signs Date Time Temp Pulse Resp B/P (MAP) Pulse Ox O2 Delivery O2 Flow Rate FiO2 05/20/25 15:42 84 05/20/25 15:33 98.0 87 15 119/55 96 98.0 Lab Test 05/20/25 17:35 05/20/25 16:54 05/20/25 15:53 Range/Units Urine Color Light-yellow Yellow Urine Clarity Clear Clear Urine pH 5.5 5.0-9.0 Urine Specific [place] 1.028 1.001-1.035 Urine Protein Negative Negative Urine Ketones Negative Negative Urine Blood Negative Negative /uL Urine Nitrite 1+ H Negative Urine Bilirubin Negative Negative Urine Urobilinogen Normal Negative mg/dL Urine Leukocyte Esterase Trace Negative /uL Urine RBC 1 0 - 4 /hpf Urine Microscopic WBC 11 H 0-5 /HPF Urine Squamous Epithelial Cells Few <5 /hpf Urine Bacteria Few H None Seen /hpf Urine Mucus Few None Seen Urine Glucose 1+ H Normal mg/dL Urine Opiates Screen Neg NEGATIVE Urine Fentanyl Screen Neg NEGATIVE Urine Barbiturates Screen Neg NEGATIVE Urine Phencyclidine Screen Neg NEGATIVE Urine Amphetamines Screen Pos NEGATIVE Urine Benzodiazepines Screen Neg NEGATIVE Urine Cocaine Screen Neg NEGATIVE Urine Cannabinoids Screen Neg NEGATIVE Troponin I High Sensitivity < 3 L < 3 L </=34 ng/L White Blood Count 6.5 4.4-10.8 10^3/uL Red Blood Count 5.02 4.0-5.20 10^6/uL Hemoglobin 14.7 12.2-16.2 g/dL Hematocrit 43.7 36.0-46.0 % Mean Corpuscular Volume 86.9 80.0-100.0 fL Mean Corpuscular Hemoglobin 29.3 28.0-32.0 pg Mean Corpuscular Hemoglobin Concent 33.7 32.0-36.0 g/dL Red Cell Distribution Width 13.9 11.8-14.3 % Platelet Count 254 140-450 10^3/uL Mean Platelet Volume 9.3 6.9-10.8 fL Neutrophils (%) (Auto) 54.9 37.0-80.0 % Lymphocytes (%) (Auto) 36.7 10.0-50.0 % Monocytes (%) (Auto) 5.6 0.0-12.0 % Eosinophils (%) (Auto) 1.9 0.0-7.0 % Basophils (%) (Auto) 0.9 0.0-2.0 % Neutrophils # (Auto) 3.6 1.6-8.6 10 ^3/uL Lymphocytes # (Auto) 2.4 0.4-5.4 10 ^3/uL Monocytes # (Auto) 0.4 0-1.3 10 ^3/uL Eosinophils # (Auto) 0.1 0-0.8 10 ^3/uL Basophils # (Auto) 0.1 0-0.2 10 ^3/uL Nucleated Red Blood Cells 0.1 % D-Dimer, Quantitative 0.26 0.0-0.49 mg/L FEU Sodium Level 142 136-145 mmol/L Potassium Level 4.0 3.5-5.1 mmol/L Chloride Level 105 98-107 mmol/L Carbon Dioxide Level 30 20-31 mmol/L Anion Gap 7 5-15 Blood Urea Nitrogen 22 9-23 mg/dL Creatinine 0.84 0.550-1.02 mg/dL Glomerular Filtration Rate Calc 79 >90 mL/min BUN/Creatinine Ratio 26.2 H 10.0-20.0 Serum Glucose 155 H 74-106 mg/dL Calcium Level 9.1 8.7-10.4 mg/dL Total Bilirubin 0.3 0.2-1.0 mg/dL Aspartate Amino Transferase (AST) 14 13-40 U/L Alanine Aminotransferase (ALT) 13 7-40 U/L Alkaline Phosphatase 87 46-116 U/L B-Type Natriuretic Peptide 30.82 0-100 pg/mL Total Protein 6.3 5.7-8.2 g/dL Albumin 3.9 3.2-4.8 g/dL Lipase 40 12-53 U/L X-Ray, Labs, Meds, VS Comment All studies performed the ED were evaluated by me personally. Serum studies were unremarkable for any systemic concerns including unremarkable cardiac markers, but urinalysis confirmed nice mild urinary tract infection. Additional findings of methamphetamine use was gleaned. Patient's EKG revealed a sinus rhythm with a rate of 84. CO interval of 141 and QT interval of 387. Patient will be discharged to follow up with the primary care provider for cardiac or from evaluation and has been advised to cease methamphetamine use immediately. Time of 1ST Reevaluation: 18:57 Reevaluation 1ST: Improved Consultation: PCP, Cardiology Patient Education/Counseling: Diagnosis, Treatment Family Education/Counseling: Diagnosis, Treatment SEPSIS Sepsis Screen Date sepsis recognized/suspect: May 20, 2025 Time Sepsis recognized/suspect: 1533 Recent Procedure: No On Antibiotic Therapy: No Respiratory Rate >20: No Heart Rate >90: No Temp<36 C (96.8 F) or >38.3 C: No SBP <90 or MAP <65 mmHG: No New Acute Mental Status Change: No Is the patient on CPAP, BIPAP,: No Physician Orders Electrocardigram (05/20/25 15:34) Electrocardigram (05/20/25 16:34) Electrocardigram (05/20/25 18:34) Vital Signs Date Time Temp Pulse Resp B/P (MAP) Pulse Ox O2 Delivery O2 Flow Rate FiO2 05/20/25 15:42 84 05/20/25 15:33 98.0 87 15 119/55 96 98.0 Laboratory Tests Test 05/20/25 15:53 White Blood Count 6.5 10^3/uL (4.4-10.8) Departure 1 Departure Time of Disposition: 18:58 Impression: Primary Impression: Chest pain Additional Impression: Methamphetamine use Disposition: HOME / SELF CARE / HOMELESS Condition: Stable Additional Instructions: Advised Tylenol and or Motrin as needed for pain relief. Patient should follow up with primary care provider for discussions related to her chest pain concerns. Patient has been advised to cease methamphetamine use immediately and follow up with a support programs such as narcotics anonymous. Discharged With: Self, Friend Critical Care Note Critical Care Time?: No Stability Stability form required: No Heart Score Heart Score: Heart Score Response (Comments) Value History Slightly Suspicious 0 EKG Normal 0 Age 45-64 1 Risk Factors 1 or 2 risk factors 1 Troponin Normal limit 0 Total 2 GOLDIE MORGAN PAC May 20, 2025 18:58
[2025-05-20 20:05] VITALS: BP 118/69; TEMP 97.9
[2025-05-20 20:07] VITALS: PULSE 91; RESP 20; O2SAT 95
[2025-05-20] MEDS: KETOROLAC TROMETH 30 MG/ML 1ML VIAL IM ONE (20:18)
--- NOTE | 2025-05-25 14:52 | ECG ---
[facility] Test Date: 2025-05-20 Test Time: 15:42:54 Pat Name: NIKOLAY ROMERO Department: ER Room: Gender: F Rn Psych: TATA : 1965 Requested By: PORTIA ROMERO Order Number: [id number] Reading MD: Hussain Blandon Measurements Intervals [place] Rate: 84 P: 57 IA: 141 QRS: 67 QRSD: 96 T: 37 QT: 387 QTc: 458 Interpretive Statements Sinus rhythm Electronically Signed On 05-28-2025 17:16:04 PDT by Hussain Blandon Please click the below link to view image of tracing.
== END 2025-05-20 20:23 | disposition home or self-care (01) ==
LOC: ER 15:33
DX: R07.89 Other chest pain (principal); F15.90 Other stimulant use, unspecified, uncomplicated; F32.A Depression, unspecified; E11.9 Type 2 diabetes mellitus without complications; Z87.442 Personal history of urinary calculi; Z90.49 Acquired absence of other specified parts of digestive tract; Z88.2 Allergy status to sulfonamides; Z88.1 Allergy status to other antibiotic agents; Z79.84 Long term (current) use of oral hypoglycemic drugs; Z79.899 Other long term (current) drug therapy
CPT/HCPCS: 36415; 80053; 80307; 81001; 83690; 83880; 84484; 85025; 85379; 93005; 96372; 99284; J1885